=== PATIENT | male | born 1985 | race Caucasian/White ===

== ENCOUNTER 2016-12-10 08:15 | Emergency (ER) | payer SELFPAY ==
[2016-12-10 08:22] VITALS: BP 152/79
[2016-12-10] MEDS ORDERED: IPRATROPIUM/ALBUTEROL 0.5-2.5 MG/3 ML AMPUL NEB ONE (08:33)
[2016-12-10] MEDS ORDERED: KETOROLAC TROMETHAMINE INJ/PF 30 MG/1 ML SDV IV ONE (08:34)
[2016-12-10] MEDS ORDERED: PREDNISONE 20 MG TABLET PO ONE (08:36)
[2016-12-10] MEDS ORDERED: NORMAL SALINE 1000 ML 1,000 ML IV ONE ×2 (08:49→10:02)
--- NOTE | 2016-12-10 08:55 | ER Document Report ---
ED Respiratory Problem - General Chief Complaint: Cough Stated Complaint: COUGH Mode of Arrival: Ambulatory Information source: Patient Notes: Patient presents complaining of cough for the past 5 days with fever today as high as 101. Patient reports some sinus congestion and sore throat. Patient reports multiple sick contacts recently. Patient complains of rib pain with coughing. Patient does report increase thirst and appetite recently. TRAVEL OUTSIDE OF THE [place] IN LAST 30 DAYS: No - HPI Patient complains to provider of: Cough, Short of breath. No: Asthma Onset: Other - 5 days Duration: Worse/persistent Initiating Event: URI Quality of pain: Achy Pain Level: 3 Context: denies: DVT, Hx asthma, Hx COPD, Recent foreign travel, Recent immobilization, Recent surgery Short of Breath: Mild Cough: Productive Sputum amount: Small Associated symptoms: Chest pain/discomfort - With coughing only, Congestion, Cough, Fever, Heart racing, Runny nose, Short of breath. denies: Bloody cough Similar symptoms previously: No Recently seen / treated by doctor: No - Related Data Allergies/Adverse Reactions: No Known Allergies Allergy (Verified 12/10/16 08:22) Past Medical History - General Information source: Patient - Social History Smoking Status: Current Every Day Smoker Cigarette use (# per day): Yes - half pack Chew tobacco use (# tins/day): No Frequency of alcohol use: None Drug Abuse: None Occupation: none Lives with: Family Family History: Reviewed & Not Pertinent Patient has suicidal ideation: No Patient has homicidal ideation: No - Past Medical History Cardiac Medical History: Reports: Hx Hypertension Renal/ Medical History: Denies: Hx Peritoneal Dialysis Psychiatric Medical History: Reports: Hx Depression Surgical Hx: Negative - Immunizations Hx Diphtheria, Pertussis, Tetanus Vaccination: Yes Review of Systems - Review of Systems Constitutional: Fever EENT: Nose congestion, Nose discharge, Sinus pressure Cardiovascular: Chest pain - With coughing Respiratory: Cough, Short of breath Gastrointestinal: No symptoms reported. denies: Abdominal pain, Nausea, Vomiting Genitourinary: Frequency. denies: Dysuria Male Genitourinary: No symptoms reported Musculoskeletal: No symptoms reported. denies: Back pain Skin: No symptoms reported Hematologic/Lymphatic: No symptoms reported Neurological/Psychological: No symptoms reported Physical Exam - Vital signs Vitals: Temp Pulse Resp BP Pulse Ox 99.0 F 117 H 18 152/79 H 96 12/10/16 08:21 12/10/16 08:21 12/10/16 08:21 12/10/16 08:21 12/10/16 08:21 - General General appearance: Alert In distress: Mild - HEENT Head: Normocephalic, Atraumatic Eyes: Normal Conjunctiva: Normal Ears: Normal External canal: Normal Tympanic membrane: Normal Nasal: Normal Mouth/Lips: Normal Mucous membranes: Normal Pharynx: Erythema. No: Peritonsillar abscess, Tonsillar hypertrophy Neck: Normal, Supple. No: Lymphadenopathy, Meningismus - Respiratory Respiratory status: No respiratory distress Chest status: Pain with cough. No: Pain with deep breathing Breath sounds: Nonproductive cough, Wheezing - with cough Chest palpation: Normal - Cardiovascular Rhythm: Tachycardia Heart sounds: S1 appreciated, S2 appreciated Murmur: No - Abdominal Inspection: Morbidly Obese Distension: No distension Bowel sounds: Normal Tenderness: Nontender - Back Back: Normal, Nontender. No: CVA tenderness, Vertebra tenderness - Extremities General upper extremity: Normal inspection, Normal strength General lower extremity: Normal inspection, Normal strength - Neurological Neuro grossly intact: Yes Cognition: Normal [place] Coma Scale Eye Opening: Spontaneous [place] Coma Scale Verbal: Oriented [place] Coma Scale Motor: Obeys Commands Minerva Coma Scale Total: 15 - Psychological Associated symptoms: Anxious - Skin Skin Temperature: Warm Skin Moisture: Diaphoretic Skin Color: Pale Course - Re-evaluation Re-evalutation: 12/10/16 10:02 Patient's tachycardia improved, patient with good air movement bilaterally, no wheezing. 12/10/16 12:24 Respirations unlabored. Patient with occasional cough. Heart rate in the 80s. Discussed discharge planning care with patient. Patient advised of diabetes diagnosis. Discussed diet changes. Patient encouraged to follow-up with primary care provider for further management of his diabetes. - Vital Signs Vital signs: Temp Pulse Resp BP Pulse Ox 99.0 F 117 H 10 L 152/79 H 93 12/10/16 08:21 12/10/16 08:21 12/10/16 13:00 12/10/16 08:21 12/10/16 13:00 - Laboratory Result Diagrams: 12/10/16 09:20 12/10/16 10:47 Laboratory results interpreted by me: 12/10/16 12/10/16 12/10/16 09:20 09:20 09:20 RBC 5.99 H MCH 26.7 L RDW 14.2 H Glucose Hemoglobin A1c % 11.5 H Creatine Kinase Urine Glucose (UA) >=500 H Urine Ketones 20 H Urine Urobilinogen 2.0 H Urine Ascorbic Acid 40 H 12/10/16 10:47 RBC MCH RDW Glucose 291 H Hemoglobin A1c % Creatine Kinase 28 L Urine Glucose (UA) Urine Ketones Urine Urobilinogen Urine Ascorbic Acid Labs- Entire Visit 12/10/16 12/10/16 12/10/16 09:20 09:20 09:20 WBC 9.6 RBC 5.99 H Hgb 16.0 Hct 49.0 MCV 82 MCH 26.7 L MCHC 32.6 RDW 14.2 H Plt Count 184 Seg Neutrophils % 77.1 Lymphocytes % 13.6 Monocytes % 6.2 Eosinophils % 2.5 Basophils % 0.6 Absolute Neutrophils 7.4 Absolute Lymphocytes 1.3 Absolute Monocytes 0.6 Absolute Eosinophils 0.2 Absolute Basophils 0.1 D-Dimer Cancelled Sodium Cancelled Potassium Cancelled Chloride Cancelled Carbon Dioxide Cancelled Anion Gap Cancelled BUN Cancelled Creatinine Cancelled Est GFR ( Amer) Cancelled Est GFR (Non-Af Amer) Cancelled Glucose Cancelled Hemoglobin A1c % Calcium Cancelled Total Bilirubin Cancelled Direct Bilirubin Cancelled AST Cancelled ALT Cancelled Alkaline Phosphatase Cancelled Creatine Kinase Cancelled CK-MB (CK-2) Troponin I Total Protein Cancelled Albumin Cancelled Urine Color Urine Appearance Urine pH Ur Specific Driscoll Urine Protein Urine Glucose (UA) Urine Ketones Urine Blood Urine Nitrite Urine Bilirubin Urine Urobilinogen Ur Leukocyte Esterase Urine WBC (Auto) Urine RBC (Auto) Squamous Epi Cells Auto Urine Ascorbic Acid 12/10/16 12/10/16 12/10/16 09:20 09:20 09:20 WBC RBC Hgb Hct MCV MCH MCHC RDW Plt Count Seg Neutrophils % Lymphocytes % Monocytes % Eosinophils % Basophils % Absolute Neutrophils Absolute Lymphocytes Absolute Monocytes Absolute Eosinophils Absolute Basophils D-Dimer Sodium Potassium Chloride Carbon Dioxide Anion Gap BUN Creatinine Est GFR ( Amer) Est GFR (Non-Af Amer) Glucose Hemoglobin A1c % 11.5 H Calcium Total Bilirubin Direct Bilirubin AST ALT Alkaline Phosphatase Creatine Kinase CK-MB (CK-2) Cancelled Troponin I Cancelled Total Protein Albumin Urine Color YELLOW Urine Appearance CLEAR Urine pH 6.0 Ur Specific Driscoll 1.032 Urine Protein NEGATIVE Urine Glucose (UA) >=500 H Urine Ketones 20 H Urine Blood NEGATIVE Urine Nitrite NEGATIVE Urine Bilirubin NEGATIVE Urine Urobilinogen 2.0 H Ur Leukocyte Esterase NEGATIVE Urine WBC (Auto) 1 Urine RBC (Auto) 0 Squamous Epi Cells Auto <1 Urine Ascorbic Acid 40 H 12/10/16 12/10/16 12/10/16 10:17 10:47 10:47 WBC RBC Hgb Hct MCV MCH MCHC RDW Plt Count Seg Neutrophils % Lymphocytes % Monocytes % Eosinophils % Basophils % Absolute Neutrophils Absolute Lymphocytes Absolute Monocytes Absolute Eosinophils Absolute Basophils D-Dimer < 0.27 Sodium 137.4 Potassium 4.4 Chloride 100 Carbon Dioxide 25 Anion Gap 12 BUN 12 Creatinine 0.59 Est GFR ( Amer) > 60 Est GFR (Non-Af Amer) > 60 Glucose 291 H Hemoglobin A1c % Calcium 9.2 Total Bilirubin 1.2 Direct Bilirubin 0.0 AST 34 ALT 64 Alkaline Phosphatase 84 Creatine Kinase 28 L CK-MB (CK-2) < 0.22 Troponin I < 0.012 Total Protein 6.8 Albumin 3.9 Urine Color Urine Appearance Urine pH Ur Specific Driscoll Urine Protein Urine Glucose (UA) Urine Ketones Urine Blood Urine Nitrite Urine Bilirubin Urine Urobilinogen Ur Leukocyte Esterase Urine WBC (Auto) Urine RBC (Auto) Squamous Epi Cells Auto Urine Ascorbic Acid 12/10/16 19:47 - Diagnostic Test Radiology reviewed: Reports reviewed Discharge - Discharge Clinical Impression: Upper respiratory infection Qualifiers: URI type: unspecified URI Qualified Code(s): J06.9 - Acute upper respiratory infection, unspecified Diabetes Qualifiers: Diabetes mellitus type: type 2 Diabetes mellitus complication status: without complication Diabetes mellitus primary health care nurse insulin use: without mcfp use Qualified Code(s): E11.9 - Type 2 diabetes mellitus without complications Condition: Stable Disposition: HOME, SELF-CARE Instructions: Diabetes ([facility]), Glucophage ([facility]) Additional Instructions: Return immediately for any new or worsening symptoms Followup with a primary care provider, call tomorrow to make a followup appointment You will need to limit concentrated sweets and starches in your diet. Monitor your blood sugar at least twice a day. UPPER RESPIRATORY ILLNESS: You have a viral infection of the respiratory passages -- a "cold." This common infection causes nasal congestion, drainage, and often sore throat and cough. It is highly contagious. The disease usually lasts about 10 to 14 days. There is no "cure" for the viral infection -- it must run its course. If there is a complication, such as bacterial infection in the nose, sinuses, middle ear, or bronchial tubes, antibiotics may be required. The antibiotics won't affect the virus. Drink plenty of fluids. A humidifier may help. An expectorant medication or decongestant may make you more comfortable. Use acetaminophen or ibuprofen for fever or aches. See the doctor if fever persists over two days, if there is any significant worsening of your symptoms, or if you simply fail to improve as expected. BRONCHOSPASM: You have tightness in the bronchial tubes, called bronchospasm. This often occurs with bronchial infections. Allergies, inhaled chemicals, and polluted or cold air can also provoke bronchospasm. It's more likely in patients with asthma in the family. Emergency treatment of bronchospasm may include adrenaline shots or bronchodilator aerosol. You may feel lightheaded and have a rapid pulse for an hour or two. Rest and get plenty of fluids. At home, we'll treat you with a bronchodilator inhaler. Antibiotics and corticosteroids may be required for some patients. Until you recover, avoid chemical fumes, dusts, pollens, and exercising in very cold or dry air. If you smoke, stop now!! If you develop a fever, increased wheezing, chest pain, or severe shortness of breath, you should contact the doctor immediately. INHALED BRONCHODILATORS: You have received a treatment of and/or prescription for an inhaled bronchodilator -- a medication which stimulates the airways in the lung to dilate. This improves the flow of air in asthma, bronchitis, and emphysema. These medicines have some similarity to adrenaline, and can cause similar side effects: shakiness, racing heart, and a sense of nervousness. These side effects decrease with time. Contact your doctor if these side effects are severe. Do not over-use the medicine. Too-frequent use of the inhaler may make it ineffective. Call your doctor if the inhaler is not controlling your symptoms at the prescribed doses. STEROID MEDICATION: You have been given an injection of or oral medicine of the cortisone/ steroid class. This medication is used to control inflammation or allergy. Saroj t is usually only given for a short period of time, until the acute process subsides. There are usually no side effects from short-term use of cortisone-like medications. Some persons feel an increased sense of well-being and are not sleepy at bedtime. Long-term use of cortisone medications is best avoided, unless required for a severe condition. If your condition does not remit, or relapses after the course of corticosteroid medication, you should consult your physician. USE OF ACETAMINOPHEN (Tylenol): Acetaminophen may be taken for pain relief or fever control. It's much safer than aspirin, offering a wider range of "safe" dosages. It is safe during . Some brand names are Tylenol, Panadol, Datril, Anacin 3, Tempra, and Liquiprin. Acetaminophen can be repeated every four hours. The following are maximum recommended dosages: >89 pounds or adults 650 mg to 900 mg Acetaminophen can be repeated every four hours. Maximum dose not to exceed 4000 mg a day. SMOKING: If you smoke, you should stop smoking. The tar and chemicals in cigarette smoke are harmful. Smoking has been shown to cause: emphysema chronic bronchitis lung cancer mouth and throat cancer stomach and pancreas cancer premature aging defects In addition, smoking increases ear and lung infections in children of smokers. FOLLOW-UP CARE: If you have been referred to a physician for follow-up care, call the physician s office for an appointment as you were instructed or within the next two days. If you experience worsening or a significant change in your symptoms, notify the physician immediately or return to the Emergency Department at any time for re-evaluation. Prescriptions: Albuterol Sulfate [Ventolin Hfa] 2 puff IH Q4HP PRN #17 gm PRN Reason: Blood-Glucose Meter, Drum-Type [Accu-Chek] 1 kit MC ASDIR PRN #1 kit PRN Reason: Metformin HCl 500 mg PO BID #60 tablet Prednisone [Deltasone 10 mg Tablet] 10 mg PO ASDIR PRN #21 tablet PRN Reason: Referrals: [facility] [Provider Group] - Follow up as needed [facility] [Provider Group] - Follow up tomorrow
[2016-12-10 09:52] LABS: ABSOLUTE BASOPHILS # (AUTO) 0.1 10^3/uL (0.0-0.2); ABSOLUTE EOSINOPHILS # (AUTO) 0.2 10^3/uL (0.0-0.6); ABSOLUTE LYMPHOCYTES (AUTO) 1.3 10^3/uL (0.5-4.7); ABSOLUTE MONOCYTES (AUTO) 0.6 10^3/uL (0.1-1.4); ABSOLUTE NEUT (AUTO) 7.4 10^3/uL (1.7-8.2); BASOPHILS % (AUTO) 0.6 % (0-2); EOSINOPHILS % (AUTO) 2.5 % (0-6); LYMPHOCYTES % (AUTO) 13.6 % (13-45); MEAN CORPUSCULAR HEMOGLOBIN 26.7 pg (27.0-33.4); MEAN CORPUSCULAR HGB CONC 32.6 g/dL (32.0-36.0); MEAN CORPUSCULAR VOLUME 82 fl (80-97); MONOCYTES % (AUTO) 6.2 % (3-13); RED BLOOD COUNT 5.99 10^6/uL (4.35-5.55); RED CELL DISTRIBUTION WIDTH 14.2 % (11.5-14.0); SEGMENTED NEUTROPHILS % (AUTO) 77.1 % (42-78); WHITE BLOOD COUNT 9.6 10^3/uL (4.0-10.5)
[2016-12-10 09:53] LABS: APPEARANCE,URINE CLEAR; BILIRUBIN,URINE NEGATIVE (NEGATIVE); GLUCOSE, URINE >=500 mg/dL (NEGATIVE); KETONES,URINE 20 mg/dL (NEGATIVE); LEUKOCYTE ESTERASE,URINE NEGATIVE (NEGATIVE); NITRITE,URINE NEGATIVE (NEGATIVE); PROTEIN,URINE NEGATIVE (NEGATIVE); URINE SPECIFIC GRAVITY 1.032
[2016-12-10 11:32] LABS: ALANINE AMINOTRANSFERASE 64 U/L (21-72); ALBUMIN 3.9 g/dL (3.5-5.0); ALKALINE PHOSPHATASE 84 U/L (38-126); ANION GAP 12 (5-19); ASPARTATE AMINO TRANSFERASE 34 U/L (17-59); BILIRUBIN,TOTAL 1.2 mg/dL (0.2-1.3); BLOOD UREA NITROGEN 12 mg/dL (7-20); CALCIUM 9.2 mg/dL (8.4-10.2); CARBON DIOXIDE 25 mmol/L (22-30); CHLORIDE 100 mmol/L (98-107); CREATINE KINASE 28 U/L (55-170); CREATININE RESULT 0.59 mg/dL (0.52-1.25); GLUCOSE 291 mg/dL (75-110); POTASSIUM 4.4 mmol/L (3.6-5.0); SODIUM 137.4 mmol/L (137-145); TOTAL PROTEIN 6.8 g/dL (6.3-8.2)
[2016-12-10 11:53] LABS: CREATINE KINASE MB < 0.22 ng/mL (<4.55); TROPONIN I < 0.012 ng/mL
--- NOTE | 2016-12-10 12:16 | EKG REPORT ---
SEVERITY:- OTHERWISE NORMAL ECG - SINUS TACHYCARDIA : Confirmed by: Hans Bangura MD 10-Dec-2016 12:16:14
== END 2016-12-10 13:02 | disposition home or self-care (01) ==
LOC: ER 08:15
DX: J06.9 Acute upper respiratory infection, unspecified (principal); E11.9 Type 2 diabetes mellitus without complications; R05 Cough; R50.9 Fever, unspecified; R00.0 Tachycardia, unspecified; J02.9 Acute pharyngitis, unspecified; R09.81 Nasal congestion; R07.81 Pleurodynia; R63.1 Polydipsia; R63.2 Polyphagia; R06.02 Shortness of breath; I10 Essential (primary) hypertension; J34.89 Other specified disorders of nose and nasal sinuses; F17.210 Nicotine dependence, cigarettes, uncomplicated
CPT/HCPCS: 93005; 99284; 36415; 87040; 87070; 87205; 82553; 82550; 85025; 87077; 80053; 81001; 84484; 83036; 85379; 71020; 93010; J1885; J7512; J7030; J7620

== ENCOUNTER 2017-08-25 03:06 | Inpatient (IN) | payer SELFPAY ==
[2017-08-25] MEDS ORDERED: ACTIVATED CHARCOAL 25 GM BOTTLE PO ONE (03:35)
--- NOTE | 2017-08-25 03:35 | ER Document Report ---
ED Psych Disorder / Suicide - General Chief Complaint: Overdose Stated Complaint: POSSIBLE OVERDOSE Time Seen by Provider: 08/25/17 03:22 Notes: The patient is a 31-year-old male, past medical history depression, anxiety, hypertension, diabetes, presents after he intentionally overdosed on the rest of his medications, which included 20 tabs each of metformin 1000 mg, BuSpar 10 mg, Lisinopril/HCTZ 20/12.5 mg and Zoloft 100 mg at 02:00 am tonight. He is here with his fiance and says that he is having increased depression that prompted him to take the medications. He used to see [facility]'s mental health team, but has not seen them in a long time. He denies nausea, vomiting, sleepiness, headache, hallucinations, seizures, abdominal pain, chest pain, shortness of breath or fevers. TRAVEL OUTSIDE OF THE [place] IN LAST 30 DAYS: No - Related Data Allergies/Adverse Reactions: No Known Allergies Allergy (Verified 08/25/17 03:14) Past Medical History - General Information source: Patient - Social History Smoking Status: Unknown if Ever Smoked Family History: Reviewed & Not Pertinent Patient has suicidal ideation: Yes - Past Medical History Cardiac Medical History: Reports: Hx Hypertension Renal/ Medical History: Denies: Hx Peritoneal Dialysis Psychiatric Medical History: Reports: Hx Depression - Immunizations Hx Diphtheria, Pertussis, Tetanus Vaccination: Yes Review of Systems - Review of Systems Notes: REVIEW OF SYSTEMS: CONSTITUTIONAL: -fevers, -chills EENT: -eye pain, -difficulty swallowing, -nasal congestion CARDIOVASCULAR:-chest pain, -syncope. RESPIRATORY: -cough, -SOB GASTROINTESTINAL: -abdominal pain, - nausea, -vomiting, -diarrhea GENITOURINARY: -dysuria, -hematuria MUSCULOSKELETAL: -back pain, -neck pain SKIN: -rash or skin lesions. HEMATOLOGIC: -easy bruising or bleeding. LYMPHATIC: -swollen, enlarged glands. NEUROLOGICAL: -altered mental status or loss of consciousness, -headache, - neurologic symptoms PSYCHIATRIC: +anxiety, +depression, +suicide attempt ALL OTHER SYSTEMS REVIEWED AND NEGATIVE. Physical Exam - Vital signs Vitals: Temp Pulse Resp BP Pulse Ox 98.9 F 100 19 163/92 H 98 08/25/17 03:10 08/25/17 03:10 08/25/17 03:10 08/25/17 03:10 08/25/17 03:10 - Notes Notes: PHYSICAL EXAMINATION: GENERAL: Well-appearing, well-nourished and in no acute distress. HEAD: Atraumatic, normocephalic. EYES: Pupils equal round and reactive to light, extraocular movements intact, sclera anicteric, conjunctiva are normal. ENT: nares patent, oropharynx clear without exudates. Moist mucous membranes. NECK: Normal range of motion, supple without lymphadenopathy LUNGS: Breath sounds clear to auscultation bilaterally and equal. No wheezes rales or rhonchi. HEART: Regular rate and rhythm without murmurs ABDOMEN: Soft, nontender, normoactive bowel sounds. No guarding, no rebound. No masses appreciated. EXTREMITIES: Normal range of motion, no pitting or edema. No cyanosis. NEUROLOGICAL: Cranial nerves grossly intact. Normal speech, normal gait. Normal sensory and motor exams. PSYCH: Depressed mood. SKIN: Diaphoretic. Course - Re-evaluation Re-evalutation: 08/25/17 03:29 Spoke to Poison Control. Buspar can lead to drowsiness and possible seizures. HCTZ/Lisinopril can lead to hypokalemia and increased urination. Metformin can cause a lactic acidosis and will not drop the blood sugar. If a severe lactic acidosis, then dialysis is recommended to clear the metformin. Recommends IVF, checking ABG, lactate, charcoal and monitoring for 24 hours due to metformin. 08/25/17 04:43 Pt appears well and has no complaints at this time. IVC filled out. Labs are unremarkable, other than a leukocytosis, but no fevers or signs of infection. He is not acidotic and his lactate is . His PMD is [facility]. 08/25/17 05:[address] Sanabria (Hospitalist) and will bring patient in as Obs under Tele for further evaluation and monitoring. - Vital Signs Vital signs: Temp Pulse Resp BP Pulse Ox 98.9 F 100 16 130/88 H 96 08/25/17 03:10 08/25/17 03:10 08/25/17 04:31 08/25/17 04:31 08/25/17 05:00 - Laboratory Result Diagrams: 08/25/17 03:36 08/25/17 03:36 Laboratory results interpreted by me: 08/25/17 08/25/17 08/25/17 03:36 03:36 03:46 WBC 14.0 H RBC 5.63 H Absolute Neutrophils 9.7 H ABG pO2 ABG HCO3 ABG Total CO2 Glucose 120 H POC Glucose 125 H Direct Bilirubin 0.5 H Salicylates < 1.0 L Acetaminophen < 10 L 08/25/17 04:03 WBC RBC Absolute Neutrophils ABG pO2 69.2 L ABG HCO3 28.2 H ABG Total CO2 29.5 H Glucose POC Glucose Direct Bilirubin Salicylates Acetaminophen - EKG Interpretation by Nh EKG shows normal: Sinus rhythm, [place], Intervals - QTc 463, QRS Complexes, ST-T Waves Critical Care Note - Critical Care Note Total time excluding time spent on procedures (mins): 35 Discharge - Discharge Clinical Impression: Suicide attempt Overdose Qualifiers: Encounter type: initial encounter Injury intent: intentional self-harm Qualified Code(s): T50.902A - Poisoning by unspecified drugs, medicaments and biological substances, intentional self-harm, initial encounter Condition: Stable Disposition: ADMITTED OBSERVATION [facility] Admitted: Telemetry
[2017-08-25 03:44] LABS: ABSOLUTE BASOPHILS # (AUTO) 0.1 10^3/uL (0.0-0.2); ABSOLUTE EOSINOPHILS # (AUTO) 0.5 10^3/uL (0.0-0.6); ABSOLUTE LYMPHOCYTES (AUTO) 2.9 10^3/uL (0.5-4.7); ABSOLUTE MONOCYTES (AUTO) 0.7 10^3/uL (0.1-1.4); ABSOLUTE NEUT (AUTO) 9.7 10^3/uL (1.7-8.2); EOSINOPHILS % (AUTO) 3.8 % (0-6); HEMATOCRIT 46.3 % (37.9-51.0); HEMOGLOBIN 16.4 g/dL (13.5-17.0); HGB HCT DIFFERENCE 2.9; LYMPHOCYTES % (AUTO) 21.1 % (13-45); MEAN CORPUSCULAR HEMOGLOBIN 29.2 pg (27.0-33.4); MEAN CORPUSCULAR HGB CONC 35.5 g/dL (32.0-36.0); MEAN CORPUSCULAR VOLUME 82 fl (80-97); MONOCYTES % (AUTO) 4.9 % (3-13); RED BLOOD COUNT 5.63 10^6/uL (4.35-5.55); RED CELL DISTRIBUTION WIDTH 13.9 % (11.5-14.0); SEGMENTED NEUTROPHILS % (AUTO) 69.2 % (42-78)
[2017-08-25] MEDS: NORMAL SALINE 1000 ML 1,000 ML IV PRN ×2 (03:45→04:04)
[2017-08-25 04:04] LABS: ALANINE AMINOTRANSFERASE 42 U/L (21-72); ALBUMIN 4.9 g/dL (3.5-5.0); ALKALINE PHOSPHATASE 70 U/L (38-126); ANION GAP 13 (5-19); ASPARTATE AMINO TRANSFERASE 51 U/L (17-59); BILIRUBIN,DIRECT 0.5 mg/dL (0.0-0.4); BILIRUBIN,TOTAL 0.8 mg/dL (0.2-1.3); BLOOD UREA NITROGEN 19 mg/dL (7-20); CALCIUM 10.1 mg/dL (8.4-10.2); CARBON DIOXIDE 28 mmol/L (22-30); CHLORIDE 101 mmol/L (98-107); CREATININE RESULT 0.77 mg/dL (0.52-1.25); GLUCOSE 120 mg/dL (75-110); POTASSIUM 3.6 mmol/L (3.6-5.0); SODIUM 141.7 mmol/L (137-145); TOTAL PROTEIN 8.1 g/dL (6.3-8.2)
[2017-08-25 04:07] LABS: ALCOHOL < 10 mg/dL (NONE DETECTED)
[2017-08-25 04:13] LABS: ARTERIAL BLOOD BASE EXCESS 3.2 mmol/L; ARTERIAL BLOOD O2 SATURATION 94.2 % (94-98)
[2017-08-25 05:11] LABS: APPEARANCE,URINE CLEAR; BILIRUBIN,URINE NEGATIVE (NEGATIVE); GLUCOSE, URINE NEGATIVE (NEGATIVE); KETONES,URINE NEGATIVE (NEGATIVE); LEUKOCYTE ESTERASE,URINE NEGATIVE (NEGATIVE); NITRITE,URINE NEGATIVE (NEGATIVE); PROTEIN,URINE NEGATIVE (NEGATIVE); URINE SPECIFIC GRAVITY 1.005; UROBILINOGEN,URINE NEGATIVE mg/dL (<2.0)
[2017-08-25 05:33] LABS: URINE BARBITURATES SCREEN NEGATIVE; URINE METHADONE SCREEN NEGATIVE; URINE OPIATES LOW NEGATIVE; URINE PHENCYCLIDINE SCREEN NEGATIVE
[2017-08-25] MEDS ORDERED: DEXTROSE 40% GEL 15 GM TUBE PO PRN ×2 (05:59)
[2017-08-25] MEDS ORDERED: MAGNESIUM HYDROXIDE SUSP 30 ML UDCUP PO PRN (05:59)
[2017-08-25] MEDS ORDERED: IPRATROPIUM/ALBUTEROL 0.5-2.5 MG/3 ML AMPUL NEB PRN (05:59)
[2017-08-25] MEDS ORDERED: INSULIN LISPRO 100 UNIT/ML 3 ML VIAL SUBCUT PRN (05:59)
[2017-08-25] MEDS ORDERED: DEXTROSE 50%-WATER 25 GM/50 ML DISP.SYRIN IV PRN ×2 (05:59)
[2017-08-25] MEDS ORDERED: GLUCAGON,HUMAN RECOMB 1 MG INJ IM PRN (05:59)
[2017-08-25] MEDS: HEPARIN SOD (PORCINE) 5,000 UNIT/ML 1 ML SYRINGE SUBCUT SCH ×3 (06:39→21:26)
--- NOTE | 2017-08-25 07:23 | PDOC H&P ---
History of Present Illness Admission Date/PCP: 08/25/17 05:59 KELLIE DAVIS MD Patient complains of: Overdose History of Present Illness: DELFIN ALVAREZ is a 31 year old male with a past medical history of morbid obesity, diabetes and depression who would been in his usual state of health until 24 hours prior to presentation with an exacerbation of depression prompting him to take 20 tablets of metformin 1000 mg, BuSpar 10 mg, lisinopril/ HCTZ 20/12.5 mg and Zoloft 100 mg at 2 AM. He has not vomited he has received charcoal. In the emergency room he has a flat affect but without metabolic derangement. Poison control recommending observation and reevaluation of labs. He has been involuntarily committed and referred to the hospitalist for admission. Patient admits to suicidal intent. Past Medical History Cardiac Medical History: Reports: Hypertension Endocrine Medical History: Reports: Diabetes Mellitus Type 2 Psychiatric Medical History: Reports: Depression Social History Information Source: Patient Lives with: Spouse/Significant other Smoking Status: Current Every Day Smoker Cigarettes Packs Per Day: 1 Number of Years Smokin Frequency of Alcohol Use: None Hx Recreational Drug Use: Yes Drugs: Marijuana - Daily Family History Family History: DM Parental Family History Reviewed: Yes Children Family History Reviewed: Yes Sibling(s) Family History Reviewed.: Yes Medication/Allergy Home Medications: Amoxicillin 500 mg PO TID #30 tablet 07/19/14 Hydrocodone Bit/Acetaminophen [Hydrocodon-Acetaminophen 5-325] 1 each PO ASDIR PRN #15 tablet 07/19/14 Ibuprofen [Motrin 800 Mg Tablet] 800 mg PO TID PRN #30 tablet 07/19/14 Lisinopril/Hydrochlorothiazide [Lisinopril-Hctz 10-12.5 mg Tab] 1 each PO DAILY #90 tablet 07/19/14 Albuterol Sulfate [Ventolin Hfa] 2 puff IH Q4HP PRN #17 gm 12/10/16 Blood-Glucose Meter, Drum-Type [Accu-Chek] 1 kit MC ASDIR PRN #1 kit 12/10/16 Metformin HCl 500 mg PO BID #60 tablet 12/10/16 Prednisone [Deltasone 10 mg Tablet] 10 mg PO ASDIR PRN #21 tablet 12/10/16 Allergies/Adverse Reactions: No Known Allergies Allergy (Verified 08/25/17 03:14) Review of Systems Constitutional: ABSENT: chills, fever(s), headache(s), weight gain, weight loss Eyes: ABSENT: visual disturbances Ears: ABSENT: hearing changes Cardiovascular: ABSENT: chest pain, dyspnea on exertion, edema, orthropnea, palpitations Respiratory: ABSENT: cough, hemoptysis Gastrointestinal: ABSENT: abdominal pain, constipation, diarrhea, hematemesis, hematochezia, nausea, vomiting Genitourinary: ABSENT: dysuria, hematuria Musculoskeletal: ABSENT: joint swelling Integumentary: ABSENT: rash, wounds Neurological: ABSENT: abnormal gait, abnormal speech, confusion, dizziness, focal weakness, syncope Psychiatric: ABSENT: anxiety, depression, homidical ideation, suicidal ideation Endocrine: ABSENT: cold intolerance, heat intolerance, polydipsia, polyuria Hematologic/Lymphatic: ABSENT: easy bleeding, easy bruising Physical Exam Vital Signs: Temp Pulse Resp BP Pulse Ox 98.9 F 100 18 151/84 H 97 08/25/17 03:10 08/25/17 03:10 08/25/17 07:00 08/25/17 06:31 08/25/17 07:00 General appearance: PRESENT: no acute distress, well-developed, well-nourished Head exam: PRESENT: atraumatic, normocephalic Eye exam: PRESENT: conjunctiva pink, EOMI, PERRLA. ABSENT: scleral icterus Ear exam: PRESENT: normal external ear exam Mouth exam: PRESENT: moist, tongue midline Neck exam: ABSENT: carotid bruit, JVD, lymphadenopathy, thyromegaly Respiratory exam: PRESENT: clear to auscultation temo. ABSENT: rales, rhonchi, wheezes Cardiovascular exam: PRESENT: RRR. ABSENT: diastolic murmur, rubs, systolic murmur Pulses: PRESENT: normal dorsalis pedis pul Vascular exam: PRESENT: normal capillary refill GI/Abdominal exam: PRESENT: normal bowel sounds, soft. ABSENT: distended, guarding, mass, organolmegaly, rebound, tenderness Rectal exam: PRESENT: deferred Extremities exam: PRESENT: full ROM. ABSENT: calf tenderness, clubbing, pedal edema Neurological exam: PRESENT: alert, awake, oriented to person, oriented to place , oriented to time, oriented to situation, CN II-XII grossly intact. ABSENT: motor sensory deficit Psychiatric exam: PRESENT: appropriate affect, normal mood. ABSENT: homicidal ideation, suicidal ideation Skin exam: PRESENT: dry, intact, warm. ABSENT: cyanosis, rash Assessment & Plan - Diagnosis (1) Overdose Qualifiers: Encounter type: initial encounter Injury intent: intentional self-harm Qualified Code(s): T50.902A - Poisoning by unspecified drugs, medicaments and biological substances, intentional self-harm, initial encounter Is this a current diagnosis for this admission?: Yes Plan: Multiple medication overdose, admitted to monitored bed, Accu-Cheks q. hour reevaluate chemistry every 6 hours. Mental health consultation. (2) Suicide attempt Is this a current diagnosis for this admission?: Yes Plan: Mental health consultation. - Time Time Spent: 30 to 50 Minutes - Inpatient Certification Medical Necessity: Need Close Monitoring Due to Risk of Patient Decompensation
[2017-08-25] MEDS: DOCUSATE SODIUM 100 MG CAPSULE PO SCH ×2 (09:28→18:31)
--- NOTE | 2017-08-25 10:32 | PDOC PROGRESS REPORT ---
Subjective Progress Note for:: 08/25/17 Subjective:: Denies any complaints. Physical Exam Vital Signs: Temp Pulse Resp BP Pulse Ox 98.0 F 95 18 135/82 H 95 08/25/17 07:35 08/25/17 07:35 08/25/17 07:35 08/25/17 07:35 08/25/17 07:35 Intake & Output 08/24/17 08/25/17 08/26/17 06:59 06:59 06:59 Weight 144.9 kg General appearance: PRESENT: no acute distress Eye exam: PRESENT: conjunctiva pink. ABSENT: scleral icterus Ear exam: PRESENT: normal external ear exam Mouth exam: PRESENT: moist, tongue midline Neck exam: ABSENT: carotid bruit, JVD, lymphadenopathy, thyromegaly Respiratory exam: PRESENT: clear to auscultation temo. ABSENT: rales, rhonchi, wheezes Cardiovascular exam: PRESENT: RRR. ABSENT: diastolic murmur, rubs, systolic murmur GI/Abdominal exam: PRESENT: normal bowel sounds, soft. ABSENT: distended, guarding, mass, organolmegaly, rebound, tenderness Extremities exam: ABSENT: calf tenderness, clubbing, pedal edema Neurological exam: PRESENT: alert, awake, oriented to person, oriented to place , oriented to time, oriented to situation, CN II-XII grossly intact. ABSENT: motor sensory deficit Psychiatric exam: PRESENT: appropriate affect Skin exam: PRESENT: dry, intact, warm. ABSENT: cyanosis, rash Assessment & Plan - Diagnosis (1) Suicide attempt Is this a current diagnosis for this admission?: Yes Plan: The patient has been involuntarily committed. Psychiatry has been consulted. (2) Overdose Qualifiers: Encounter type: initial encounter Injury intent: intentional self-harm Qualified Code(s): T50.902A - Poisoning by unspecified drugs, medicaments and biological substances, intentional self-harm, initial encounter Is this a current diagnosis for this admission?: Yes Plan: Patient overdosed on a combination of metformin, BuSpar, lisinopril, Zoloft. Will continue to monitor. (3) Hypertension Is this a current diagnosis for this admission?: Yes Plan: Will hold his antihypertensives for now. (4) Depression Is this a current diagnosis for this admission?: Yes Plan: Has been on Zoloft and BuSpar. Psychiatry has been consulted. (5) Diabetes mellitus Is this a current diagnosis for this admission?: Yes Plan: Will cover with sliding scale insulin. - Time Time Spent with patient: 25-34 minutes - Inpatient Certification Medical Necessity: Need Close Monitoring Due to Risk of Patient Decompensation
--- NOTE | 2017-08-25 13:03 | EKG REPORT ---
SEVERITY:- NORMAL ECG - SINUS RHYTHM : Confirmed by: Jose De Jesus [place] 25-Aug-2017 13:02:40
--- NOTE | 2017-08-25 13:03 | EKG REPORT ---
SEVERITY:- BORDERLINE ECG - SINUS RHYTHM BORDERLINE PROLONGED QT INTERVAL : Confirmed by: Jose De Jesus [place] 25-Aug-2017 13:02:36
[2017-08-25 15:41] LABS: ALANINE AMINOTRANSFERASE 43 U/L (21-72); ALBUMIN 4.8 g/dL (3.5-5.0); ALKALINE PHOSPHATASE 58 U/L (38-126); ANION GAP 14 (5-19); ASPARTATE AMINO TRANSFERASE 25 U/L (17-59); BILIRUBIN,DIRECT 0.4 mg/dL (0.0-0.4); BILIRUBIN,TOTAL 0.9 mg/dL (0.2-1.3); BLOOD UREA NITROGEN 17 mg/dL (7-20); CALCIUM 10.3 mg/dL (8.4-10.2); CARBON DIOXIDE 24 mmol/L (22-30); CHLORIDE 103 mmol/L (98-107); CREATININE RESULT 0.75 mg/dL (0.52-1.25); GLUCOSE 115 mg/dL (75-110); POTASSIUM 4.5 mmol/L (3.6-5.0); SODIUM 140.8 mmol/L (137-145); TOTAL PROTEIN 7.6 g/dL (6.3-8.2)
[2017-08-25] MEDS ORDERED: NICOTINE 14 MG/24 HR PATCH.TD24 TD ONE (23:15)
[2017-08-26 03:41] LABS: ABSOLUTE BASOPHILS # (AUTO) 0.2 10^3/uL (0.0-0.2); ABSOLUTE EOSINOPHILS # (AUTO) 0.2 10^3/uL (0.0-0.6); ABSOLUTE LYMPHOCYTES (AUTO) 3.7 10^3/uL (0.5-4.7); ABSOLUTE MONOCYTES (AUTO) 0.7 10^3/uL (0.1-1.4); ABSOLUTE NEUT (AUTO) 8.8 10^3/uL (1.7-8.2); BASOPHILS % (AUTO) 1.2 % (0-2); EOSINOPHILS % (AUTO) 1.4 % (0-6); HEMATOCRIT 45.1 % (37.9-51.0); HEMOGLOBIN 15.8 g/dL (13.5-17.0); HGB HCT DIFFERENCE 2.3; LYMPHOCYTES % (AUTO) 27.2 % (13-45); MEAN CORPUSCULAR HGB CONC 35.2 g/dL (32.0-36.0); MEAN CORPUSCULAR VOLUME 83 fl (80-97); MONOCYTES % (AUTO) 5.1 % (3-13); RED BLOOD COUNT 5.46 10^6/uL (4.35-5.55); RED CELL DISTRIBUTION WIDTH 13.8 % (11.5-14.0); SEGMENTED NEUTROPHILS % (AUTO) 65.1 % (42-78); WHITE BLOOD COUNT 13.5 10^3/uL (4.0-10.5)
[2017-08-26 03:59] LABS: PROTHROMBIN TIME 13.7 SEC (11.4-15.4)
[2017-08-26 04:04] LABS: ALANINE AMINOTRANSFERASE 39 U/L (21-72); ALBUMIN 4.7 g/dL (3.5-5.0); ALKALINE PHOSPHATASE 55 U/L (38-126); ANION GAP 13 (5-19); ASPARTATE AMINO TRANSFERASE 36 U/L (17-59); BILIRUBIN,DIRECT 0.4 mg/dL (0.0-0.4); BLOOD UREA NITROGEN 17 mg/dL (7-20); CARBON DIOXIDE 29 mmol/L (22-30); CHLORIDE 100 mmol/L (98-107); CREATININE RESULT 0.85 mg/dL (0.52-1.25); GLUCOSE 90 mg/dL (75-110); SODIUM 141.9 mmol/L (137-145); TOTAL PROTEIN 7.8 g/dL (6.3-8.2)
[2017-08-26] MEDS: HEPARIN SOD (PORCINE) 5,000 UNIT/ML 1 ML SYRINGE SUBCUT SCH ×2 (05:47→14:06)
[2017-08-26] MEDS: DOCUSATE SODIUM 100 MG CAPSULE PO SCH (10:38)
--- NOTE | 2017-08-26 11:11 | PSYCHOLOGICAL NOTE ---
Psych Note - Psych Note Psych Note: Patient is a 31 year old male who initially presented to [facility] ER via EMS due to an overdose of his prescription medications. Patient was admitted to [facility] Hospitalist's Services. Patient today states he is no longer suicidal and wants to go home. Patient states he is not sure what happened the other night, but states he and his girlfriend argued or were disagreeing over the past few days about a myriad of issues. Patient states there are numerous stressors, such as financial, work, etc. He states he was not experiencing suicidal ideations, prior to the exact moment he decided to take the pills. He states he has never attempted suicide in the past, although states he has considered suicide and previously checked himself inpatient, around 5 years ago. Patient states after he ingested the pills, he regretted it and woke his girlfriend to let her know what he did. Patient offers no insight and states nothing has changed in regards to his stressors or overall level of depression. HE does deny wanting to , and specifically denies wanting to by suicide. Patient states he has been working with his primary care provider and last March started Zoloft and Buspar. He states he has tried numerous medications, such as Welbutrin, Celexa etc and none of which helped. Patient states he eventually discontinued the pills on his own accord. Patient states his current medication regimen has been the most efficacious at managing his depression and anxiety. He states his PCM has been urging him to start services with [facility] in [place]; however, he has not. Patient states, "maybe I will." Discussed with patient concerns over his overall lackadaisical presentation and approach to seeking help. Discussed with patient therapy, to assist him with coping mechanisms to manage his stressors and conversational barriers with his girlfriend. Girlfriend, Eden Adams is bedside and states she was surprised by this overdose. She states they had been disagreeing for a number of days, but there was no indication that the patient was suicidal. She states she is aware that he can experience suicidal ideations when depressed, but did not think he was depressed to that degree. She states she feels therapy would be beneficial, and states he has previously done well both in therapy and with his most recent medications. Patient is A&O. Mood is depressed with flat affect. Patient denies suicidal/ homicidal ideations, but does acknowledged he wanted to when he took the pills. Patient denies A/V H; delusions not noted. Thought processes were guarded. Conversational speech was low for rate, tone, and prosody. Intellectual abilities were estimated within average range. Attention and focus were fair. Insight, judgment, and impulse control were poor. Major Depressive Disorder, Recurrent, Moderate Unspecified Anxiety Disorder Unspecified Cannabis Use Disorder Patient is recommended to continue under IVC and seek 24 hour inpatient psychiatric treatment. Patient does state he does not want to ; however, presents flat, depressed, and without insight into this episode. Each of these factors place him at risk for further episode. Patient is unable to identify what to differently, or what would help him moving forward. Patient reports a long history of medication trials unsuccessful at addressing his symptoms. I consulted with Dr. Swan in regards to the care and management of this patient. Hospitalist made aware of disposition and recommendations.
--- NOTE | 2017-08-26 12:29 | PDOC PROGRESS REPORT ---
Subjective Progress Note for:: 08/26/17 Subjective:: Denies any complaints. Physical Exam Vital Signs: Temp Pulse Resp BP Pulse Ox 98.0 F 85 18 128/74 H 98 08/26/17 11:30 08/26/17 11:30 08/26/17 11:30 08/26/17 11:30 08/26/17 11:30 Intake & Output 08/25/17 08/26/17 08/27/17 06:59 06:59 06:59 Intake Total 776 Balance 776 Weight 134.5 kg General appearance: PRESENT: no acute distress Eye exam: PRESENT: conjunctiva pink. ABSENT: scleral icterus Ear exam: PRESENT: normal external ear exam Mouth exam: PRESENT: moist, tongue midline Neck exam: ABSENT: JVD Respiratory exam: PRESENT: clear to auscultation temo. ABSENT: rales, rhonchi, wheezes Cardiovascular exam: PRESENT: RRR. ABSENT: diastolic murmur, rubs, systolic murmur Pulses: PRESENT: normal dorsalis pedis pul GI/Abdominal exam: PRESENT: normal bowel sounds, soft. ABSENT: distended, guarding, mass, organolmegaly, rebound, tenderness Extremities exam: ABSENT: calf tenderness, clubbing, pedal edema Neurological exam: PRESENT: alert, awake, oriented to person, oriented to place , oriented to time, oriented to situation, CN II-XII grossly intact. ABSENT: motor sensory deficit Psychiatric exam: PRESENT: appropriate affect Skin exam: PRESENT: dry, intact, warm. ABSENT: cyanosis, rash Results Laboratory Results: 08/26/17 03:30 08/26/17 03:30 08/25/17 08/26/17 08/26/17 15:10 03:30 03:30 WBC 13.5 H RBC 5.46 Hgb 15.8 Hct 45.1 MCV 83 MCH 29.0 MCHC 35.2 RDW 13.8 Plt Count 185 Seg Neutrophils % 65.1 Lymphocytes % 27.2 Monocytes % 5.1 Eosinophils % 1.4 Basophils % 1.2 Absolute Neutrophils 8.8 H Absolute Lymphocytes 3.7 Absolute Monocytes 0.7 Absolute Eosinophils 0.2 Absolute Basophils 0.2 Sodium 140.8 141.9 Potassium 4.5 4.0 Chloride 103 100 Carbon Dioxide 24 29 Anion Gap 14 13 BUN 17 17 Creatinine 0.75 0.85 Est GFR ( Amer) > 60 > 60 Est GFR (Non-Af Amer) > 60 > 60 Glucose 115 H 90 Calcium 10.3 H 10.0 Total Bilirubin 0.9 1.0 AST 25 36 ALT 43 39 Alkaline Phosphatase 58 55 Total Protein 7.6 7.8 Albumin 4.8 4.7 Assessment & Plan - Diagnosis (1) Suicide attempt Is this a current diagnosis for this admission?: Yes Plan: The patient has been involuntarily committed. Psychiatry has been consulted and are of the opinion the patient needs inpatient psychiatric care. He is cleared from a medical standpoint and can be discharged to inpatient psychiatric facility whenever bed becomes available. (2) Overdose Qualifiers: Encounter type: initial encounter Injury intent: intentional self-harm Qualified Code(s): T50.902A - Poisoning by unspecified drugs, medicaments and biological substances, intentional self-harm, initial encounter Is this a current diagnosis for this admission?: Yes Plan: Patient overdosed on a combination of metformin, BuSpar, lisinopril, Zoloft. Will continue to monitor. The patient is stable from medical standpoint for discharge to inpatient psychiatric treatment. (3) Hypertension Is this a current diagnosis for this admission?: Yes Plan: Will hold his antihypertensives for now. (4) Depression Is this a current diagnosis for this admission?: Yes Plan: Has been on Zoloft and BuSpar. Psychiatry has been consulted. (5) Diabetes mellitus Is this a current diagnosis for this admission?: Yes Plan: Will cover with sliding scale insulin. Sugars are under good control. - Time Time Spent with patient: 25-34 minutes - Inpatient Certification Medical Necessity: Need Close Monitoring Due to Risk of Patient Decompensation - Plan Summary Plan Summary: Patient is stable for discharge to inpatient psychiatric treatment whenever a bed becomes available.
--- NOTE | 2017-08-26 15:12 | PDOC TRANSFER SUMMARY ---
General Admission Date/PCP: 08/25/17 05:59 KELLIE DAVIS MD Transfer Date: 08/26/17 Accepting Facility: Other (Comments) - [facility] Accepting Physician: Inpatient psychiatric service Resuscitation Status: Full Code - Transfer Diagnosis (1) Suicide attempt Is this a current diagnosis for this admission?: Yes Diagnosis Summary: Patient took 20 tablets of metformin, BuSpar, lisinopril/HCTZ, Zoloft (2) Overdose Is this a current diagnosis for this admission?: Yes (3) Hypertension Is this a current diagnosis for this admission?: Yes Diagnosis Summary: His blood pressure has remained normal. Would not restart antihypertensives until his blood pressure becomes elevated again. (4) Depression Is this a current diagnosis for this admission?: Yes Diagnosis Summary: Patient is going to inpatient psychiatric for treatment (5) Diabetes mellitus Is this a current diagnosis for this admission?: Yes Diagnosis Summary: Patient took 20 tablets of metformin. He has not had any hypoglycemia. His renal function is normal. Would restart the metformin in another 24 hours. - Transfer Medications Home Medications: Buspirone HCl [Buspar 10 mg Tablet] 20 mg PO BID 08/25/17 Lisinopril/Hydrochlorothiazide [Zestoretic 20-12.5 Mg Tablet] 1 each PO DAILY Metformin HCl [Glucophage 500 mg Tablet] 500 mg PO BIDACBS 08/25/17 Sertraline HCl [Zoloft] 100 mg PO BID 08/25/17 Transfer Medications: Current Medications Albuterol/Ipratropium (Duoneb 3 Ml Ampul) 3 ml NEB [id number] PRN Stop: 09/24/17 05:58 Dextrose (Dextrose Inj 50% Syringe (25 Gm/50 Ml)) 12.5 gm IV PRN PRN; Protocol PRN Reason: FOR BG 50-69 IN ALERT PATIENT Stop: 09/24/17 05:58 Dextrose (Dextrose Inj 50% Syringe (25 Gm/50 Ml)) 25 gm IV PRN PRN PRN Reason: Protocol Stop: 09/24/17 05:58 Docusate Sodium (Colace 100 Mg Capsule) 100 mg PO BID JONATHAN Stop: 09/24/17 09:59 Last Admin: 08/26/17 10:38 Dose: Not Given Glucagon (Glucagen Inj 1 Mg Vial) 1 mg IM PRN PRN; Protocol PRN Reason: Evaluate for BG < 70 Stop: 09/24/17 05:58 Glucose (Glutose 40% Gel 15 Gm Tube) 15 gm PO PRN PRN; Protocol PRN Reason: FOR BG 50-69 IN ALERT PATIENT Stop: 09/24/17 05:58 Glucose (Glutose 40% Gel 15 Gm Tube) 30 gm PO PRN PRN; Protocol PRN Reason: FOR BG < 50 IN ALERT PATIENT Stop: 09/24/17 05:58 Heparin Sodium (Porcine) (Heparin Inj 5,000 Units/Ml 1 Ml Syringe) 5,000 unit SUBCUT Q8 JONATHAN Stop: 09/24/17 05:59 Last Admin: 08/26/17 14:06 Dose: Not Given Insulin Human Lispro (Humalog Insulin 100 Unit/1 Ml 3 Ml Vial) 0 - 12 unit SUBCUT ACP PRN PRN Reason: Protocol Stop: 09/24/17 05:58 Magnesium Hydroxide (Milk Of Magnesia 30 Ml Udcup) 30 ml PO HSP PRN Stop: 09/24/17 05:58 Nicotine (Nicoderm 14 Mg/24 Hr Transdermal Patch) 1 each TD QHS [facility] Stop: 09/25/17 21:59 - Allergies Allergies/Adverse Reactions: No Known Allergies Allergy (Verified 08/25/17 03:14) - Diet/Activity Discharge Diet: Diabetic Discharge Activity: Activity As Tolerated Hospital Course Hospital Course: 31-year-old male with a history of diabetes and depression who 24 hours prior to presentation took 20 tablets of metformin, BuSpar, lisinopril/HCTZ and Zoloft. The patient was taken to the emergency room. He was given charcoal at that time. The patient was involuntarily committed and admitted to the floor for observation. Patient has not had any cardiac arrhythmias and has had no metabolic derangement. He is medically cleared for him to be discharged to an inpatient psychiatric treatment. He has been evaluated by psychiatry and a bed has been arranged at [facility]. The patient has had normal blood pressures while hospitalized. I would recommend that we continue to hold his lisinopril/hydrochlorothiazide until his blood pressures become elevated again. Given the Metformin that he took and having, diabetes he should restart the metformin tomorrow. Physical Exam Vital Signs: Temp Pulse Resp BP Pulse Ox 98.0 F 85 18 128/74 H 98 08/26/17 11:30 08/26/17 11:30 08/26/17 11:30 08/26/17 11:30 08/26/17 11:30 Intake & Output 08/25/17 08/26/17 08/27/17 06:59 06:59 06:59 Intake Total 776 Balance 776 Weight 134.5 kg 134.5 kg General appearance: PRESENT: no acute distress Eye exam: PRESENT: conjunctiva pink. ABSENT: scleral icterus Ear exam: PRESENT: normal external ear exam Mouth exam: PRESENT: moist, tongue midline Neck exam: ABSENT: JVD Respiratory exam: PRESENT: clear to auscultation temo. ABSENT: rales, rhonchi, wheezes Cardiovascular exam: PRESENT: RRR. ABSENT: diastolic murmur, rubs, systolic murmur GI/Abdominal exam: PRESENT: normal bowel sounds, soft. ABSENT: distended, guarding, mass, organolmegaly, rebound, tenderness Extremities exam: ABSENT: calf tenderness, clubbing, pedal edema Neurological exam: PRESENT: alert, awake, oriented to person, oriented to place , oriented to time, oriented to situation, CN II-XII grossly intact. ABSENT: motor sensory deficit Psychiatric exam: PRESENT: appropriate affect Skin exam: PRESENT: dry, intact, warm. ABSENT: cyanosis, rash Results Laboratory Results: 08/26/17 03:30 08/26/17 03:30 08/25/17 08/26/17 08/26/17 15:10 03:30 03:30 WBC 13.5 H RBC 5.46 Hgb 15.8 Hct 45.1 MCV 83 MCH 29.0 MCHC 35.2 RDW 13.8 Plt Count 185 Seg Neutrophils % 65.1 Lymphocytes % 27.2 Monocytes % 5.1 Eosinophils % 1.4 Basophils % 1.2 Absolute Neutrophils 8.8 H Absolute Lymphocytes 3.7 Absolute Monocytes 0.7 Absolute Eosinophils 0.2 Absolute Basophils 0.2 Sodium 140.8 141.9 Potassium 4.5 4.0 Chloride 103 100 Carbon Dioxide 24 29 Anion Gap 14 13 BUN 17 17 Creatinine 0.75 0.85 Est GFR ( Amer) > 60 > 60 Est GFR (Non-Af Amer) > 60 > 60 Glucose 115 H 90 Calcium 10.3 H 10.0 Total Bilirubin 0.9 1.0 AST 25 36 ALT 43 39 Alkaline Phosphatase 58 55 Total Protein 7.6 7.8 Albumin 4.8 4.7 Plan Discharge Plan: Patient is transferred to inpatient psychiatric treatment at [facility]. Time Spent: Less than 30 Minutes
[2017-08-26] MEDS ORDERED: MAGNESIUM HYDROXIDE SUSP 30 ML UDCUP PO PRN (15:30)
[2017-08-26 17:04] VITALS: BP 131/82
[2017-08-26] MEDS ORDERED: NICOTINE 14 MG/24 HR PATCH.TD24 TD SCH (22:00)
== END 2017-08-26 16:45 | disposition short-term general hospital (02) | DRG 918 ==
LOC: ER 03:06 → EH 05:12 → INTOOBSV 05:12 → UNDOADMOB 05:12 → OBSVTOIN 05:12 → EH 05:59 → OBSVTOIN 05:59 → 4N 07:30
PROVIDERS: ADMIT Internal Medicine; ATTEND Internal Medicine
DX: T38.3X2A Poisoning by insulin and oral hypoglycemic [antidiabetic] drugs, intentional self-harm, initial encounter (principal); Z68.41 Body mass index [BMI] 40.0-44.9, adult; T43.592A Poisoning by other antipsychotics and neuroleptics, intentional self-harm, initial encounter; T46.4X2A Poisoning by angiotensin-converting-enzyme inhibitors, intentional self-harm, initial encounter; T43.205A Adverse effect of unspecified antidepressants, initial encounter; I10 Essential (primary) hypertension; E66.01 Morbid (severe) obesity due to excess calories; F32.9 Major depressive disorder, single episode, unspecified; E11.9 Type 2 diabetes mellitus without complications; Z83.3 Family history of diabetes mellitus
CPT/HCPCS: 36415; 80053; 80307; 81001; 82803; 82962; 83605; 85025; 85610; 93005; 93010; 96360; 96372; 99285; J1644; J3490; J7030